=== PATIENT | female | born 1985 | race Caucasian/White ===

== ENCOUNTER 2018-12-30 09:31 | Day surgery (SDC) | payer OTHER ==
[~2018-12-30 09:31] MED LIST: Lactated Ringers 1,000 ML IV SCH; Sodium Chloride 0.9% 10 ML Syringe FLUSH PRN
[2018-12-30] MEDS ORDERED: Midazolam 1 MG/ML 2 ML SDV IV ONE (09:32)
[2018-12-30] MEDS ORDERED: Lidocaine 2% 5 ML SDV INJECT ONE (09:32)
[2018-12-30] MEDS ORDERED: Propofol 200 MG/20 ML SDV IV ONE (09:32)
--- NOTE | 2018-12-30 11:01 | PCM.OPNOTE ---
- General Post-Op/Procedure Note Date of Surgery/Procedure: 12/30/18 Operative Procedure(s): egd Findings: nl exam Pre Op Diagnosis: abd discomfort. occasional dysphagia Post-Op Diagnosis: Same Anesthesia Technique: MAC Primary Surgeon: Iglesia Cline Anesthesia Provider: Dulce Keating Pathology: stomach and duodenum Complications: None Condition: Good Free Text/Narrative:: see dictation
--- NOTE | 2018-12-30 11:20 | OR ---
DATE OF OPERATION: 12/30/2018 SURGEON: Iglesia Cline MD PROCEDURE PERFORMED: Esophagogastroduodenoscopy with cold forceps biopsy. PREOPERATIVE DIAGNOSIS: History of epigastric discomfort, nonspecific dysphagia. POSTOPERATIVE DIAGNOSIS: Essentially normal exam. INDICATIONS FOR PROCEDURE: This is a 33-year-old white female who presents for an upper endoscopy. She has had a longstanding complaint of some intermittent dysphagia as well as some abdominal discomfort and bloating. She was offered and accepted an EGD. DESCRIPTION OF OPERATION: After an excellent IV sedation was administered, the bite block was inserted. The flexible endoscope was passed without difficulty down the patient's esophagus into the stomach. Stomach was insufflated. Scope passed through the pylorus, second portion of the duodenum and slowly withdrawn. The following findings were noted. Duodenum was essentially unremarkable. Did take some counter sales representative biopsies of the first portion. Stomach was essentially unremarkable. GE junction measured at 40 cm. Offline Editor biopsies were taken of the stomach. The esophagus was essentially unremarkable with no marked erythema or any findings suggestive of reflux disease. Stomach was deflated. Scope was removed. The patient tolerated the procedure well. Results by letter. /[id number] /MODL
== END 2018-12-30 11:36 | disposition home or self-care (01) ==
LOC: FB.SDS 09:31
PROVIDERS: ATTEND Surgery
DX: K29.50 Unspecified chronic gastritis without bleeding (principal); K21.9 Gastro-esophageal reflux disease without esophagitis; G43.709 Chronic migraine without aura, not intractable, without status migrainosus; F41.1 Generalized anxiety disorder; E28.2 Polycystic ovarian syndrome; E66.9 Obesity, unspecified; Z68.34 Body mass index [BMI] 34.0-34.9, adult; Z88.1 Allergy status to other antibiotic agents; Z88.8 Allergy status to other drugs, medicaments and biological substances
CPT/HCPCS: 43239; 81025; 88305; 88342; J2001; J2250; J2704; J7120